=== PATIENT | male | born 1950 | race Caucasian/White ===

== ENCOUNTER 2018-01-07 08:16 | Day surgery (SDC) | payer MEDICARE ==
[2018-01-07] MEDS ORDERED: Sodium Chloride 0.9% 20 ML ONE (08:29)
[2018-01-07 08:58] VITALS: BP 125/67; TEMP 97.6
[2018-01-07] MEDS ORDERED: diphenhydrAMINE 25 MG CAP PO PRN (08:58)
[2018-01-07] MEDS ORDERED: OCTAGAM 10% 40 GM in Admixture Fee 1 EACH IVPB SCH (09:00)
[2018-01-07] MEDS ORDERED: Acetaminophen 500 MG TAB PO SCH (09:00)
== END 2018-01-07 11:29 | disposition home or self-care (01) ==
LOC: ONC/OP 08:16
PROVIDERS: ATTEND Internal Medicine Hematology & Oncology
DX: D80.1 Nonfamilial hypogammaglobulinemia (principal); G61.81 Chronic inflammatory demyelinating polyneuritis; M19.90 Unspecified osteoarthritis, unspecified site; E78.00 Pure hypercholesterolemia, unspecified; Z79.82 Long term (current) use of aspirin; Z79.899 Other long term (current) drug therapy; Z88.2 Allergy status to sulfonamides; Z88.8 Allergy status to other drugs, medicaments and biological substances
CPT/HCPCS: 96365; 96366; J1568

== ENCOUNTER 2018-03-01 08:51 | Day surgery (SDC) | payer MEDICARE ==
[2018-03-01] MEDS ORDERED: Sodium Chloride 0.9% 20 ML ONE (09:08)
[2018-03-01] MEDS ORDERED: diphenhydrAMINE 25 MG CAP PO PRN (09:17)
[2018-03-01] MEDS ORDERED: PRIVIGEN IVPB SCH (09:30)
[2018-03-01] MEDS ORDERED: Acetaminophen 500 MG TAB PO SCH (09:30)
[2018-03-01 11:33] VITALS: BP 125/61; TEMP 97.6
== END 2018-03-01 11:58 | disposition home or self-care (01) ==
LOC: ONC/OP 08:51
PROVIDERS: ATTEND Internal Medicine Hematology & Oncology
DX: D50.9 Iron deficiency anemia, unspecified (principal); D47.3 Essential (hemorrhagic) thrombocythemia; D80.1 Nonfamilial hypogammaglobulinemia; G61.81 Chronic inflammatory demyelinating polyneuritis; Z88.2 Allergy status to sulfonamides
CPT/HCPCS: 96365; 96366; J1459

== ENCOUNTER 2018-04-19 06:25 | Day surgery (SDC) | payer MEDICARE ==
[~2018-04-19 06:25] MED LIST: Acetaminophen 500 MG TAB PO SCH; OCTAGAM 10% 40 GM in Admixture Fee 1 EACH IVPB SCH; diphenhydrAMINE 25 MG CAP PO PRN
[2018-04-19] MEDS ORDERED: Sodium Chloride 0.9% 20 ML ONE (08:42)
[2018-04-19 10:17] VITALS: BP 111/63; TEMP 97.6
== END 2018-04-19 11:09 | disposition home or self-care (01) ==
LOC: ONC/OP 06:25
PROVIDERS: ATTEND Internal Medicine Hematology & Oncology
DX: D80.1 Nonfamilial hypogammaglobulinemia (principal); D64.81 Anemia due to antineoplastic chemotherapy; D50.9 Iron deficiency anemia, unspecified; D47.3 Essential (hemorrhagic) thrombocythemia
CPT/HCPCS: 36415; 80053; 82248; 83615; 84100; 84550; 96365; 96366; J1568; Q0163

== ENCOUNTER 2018-07-09 14:24 | Outpatient (CLI) | payer MEDICARE ==
--- NOTE | 2018-07-09 15:18 | ULT ---
Exam: Limited soft tissue ultrasound HISTORY: Right groin pain. COMPARISON: None Correlation: Abdomen pelvis CT 07/13/2017 FINDINGS: Targeted sonographic imaging in the right groin was performed. Static images were reviewed. After reviewing static images, real-time imaging was performed in the presence of the radiologist. Static and real-time images demonstrate soft tissue echotexture with peristalsis, compatible with bow el loops in the right inguinal region/right groin. Possibility of a right inguinal hernia is raised. Images of the contralateral sided do not demonstrate a similar appearance IMPRESSION: Right groin hernia containing bowel loops. General surgical consultation is recommended. Results study discussed with Dr. Ledezma 07/09/2018 at 3:16 PM Code CR:
== END 2018-07-09 14:25 | disposition home or self-care (01) ==
LOC: ULT 14:24
PROVIDERS: ATTEND Internal Medicine Hematology & Oncology
DX: R19.00 Intra-abdominal and pelvic swelling, mass and lump, unspecified site (principal); D50.9 Iron deficiency anemia, unspecified; D80.1 Nonfamilial hypogammaglobulinemia; D47.3 Essential (hemorrhagic) thrombocythemia; G61.81 Chronic inflammatory demyelinating polyneuritis; K46.9 Unspecified abdominal hernia without obstruction or gangrene
CPT/HCPCS: 76999

== ENCOUNTER 2018-07-19 09:13 | Day surgery (SDC) | payer MEDICARE ==
[2018-07-19 10:42] VITALS: BP 131/74; TEMP 97.7
== END 2018-07-19 13:27 | disposition home or self-care (01) ==
LOC: ONC/OP 09:13
PROVIDERS: ATTEND Internal Medicine Hematology & Oncology
DX: D80.1 Nonfamilial hypogammaglobulinemia (principal); G61.81 Chronic inflammatory demyelinating polyneuritis; D50.9 Iron deficiency anemia, unspecified; D47.3 Essential (hemorrhagic) thrombocythemia; Z88.1 Allergy status to other antibiotic agents
CPT/HCPCS: 96365; 96366; J1568

== ENCOUNTER 2024-01-16 10:56 | Outpatient (CLI) | payer MEDICARE ==
[2024-01-16] MEDS ORDERED: Magnevist 469MG/ML 20 ML VIAL ONE (13:20)
== END 2024-01-16 10:57 | disposition home or self-care (01) ==
LOC: MRI 10:56
PROVIDERS: ATTEND Internal Medicine Hematology & Oncology
DX: M54.50 Low back pain, unspecified (principal); M48.061 Spinal stenosis, lumbar region without neurogenic claudication; M47.816 Spondylosis without myelopathy or radiculopathy, lumbar region; M47.817 Spondylosis without myelopathy or radiculopathy, lumbosacral region; M48.07 Spinal stenosis, lumbosacral region
CPT/HCPCS: 72158